=== PATIENT | female | born 1960 | race American Indian/Alaskan Native ===

== ENCOUNTER 2016-03-08 08:14 | Outpatient (CLI) | payer BC ==
--- NOTE | 2016-03-08 09:17 | Ultrasound Report ---
Renal ultrasound: The right kidney has a length of 10.8 cm. In the mid lower pole there is a 2.1 cm well-circumscribed echolucent mass. The right kidney echogenically is not otherwise remarkable. The renal length on the left side is 10.8 cm. The kidney is not quite as well visualized as the right however there are no echogenic abnormalities identified. Imaging of the urinary bladder is grossly normal. The patient demonstrated a right renal cyst of similar size and location on prior CT scan in 2011. Impression Right renal cyst.
== END 2016-03-08 08:15 | disposition home or self-care (01) ==
LOC: SPVWC 08:14
PROVIDERS: ATTEND Internal Medicine
DX: N28.1 Cyst of kidney, acquired (principal)
CPT/HCPCS: 76770

== ENCOUNTER 2021-10-06 12:28 | Emergency (ER) | payer SELFPAY ==
[2021-10-06] MEDS ORDERED: hydrALAZINE 20 MG/1 ML INJ IV ONE (13:18)
[2021-10-06 13:46] LABS: Basophils # (Auto) 0.1 K/mm3 (0.0-0.1); Basophils % (Auto) 1.4 % (0.0-1.8); Eosinophils # (Auto) 0.2 K/mm3 (0.0-0.4); Eosinophils % (Auto) 3.4 % (0.0-4.3); Hematocrit 35.5 % (30.3-42.9); Hemoglobin 11.8 gm/dl (10.1-14.3); Lymphocytes # (Auto) 1.3 K/mm3 (1.2-5.4); Lymphocytes % (Auto) 23.7 % (13.4-35.0); Mean Corpuscular HGB Conc 33 % (30-34); Mean Corpuscular Volume 91 fl (79-97); Monocytes # (Auto) 0.4 K/mm3 (0.0-0.8); Monocytes % (Auto) 6.4 % (0.0-7.3); Platelet Count 279 K/mm3 (140-440); Red Cell Distribution Width 14.6 % (13.2-15.2)
[2021-10-06] MEDS ORDERED: ACETAMINOPHEN 325 MG TAB PO ONE (14:00)
[2021-10-06 14:02] LABS: Alanine Aminotransferase 15 units/L (7-56); Albumin 4.6 g/dL (3.9-5); Blood Urea Nitrogen 13 mg/dL (7-17); Calcium 9.7 mg/dL (8.4-10.2); Hemolysis Index 28
[2021-10-06 14:03] LABS: BUN/Creatinine Ratio 19; Bilirubin,Direct < 0.2 mg/dL (0-0.2)
--- NOTE | 2021-10-06 14:15 | Emergency Department Report ---
ED Headache HPI - General Chief Complaint: High BP Stated Complaint: HYPERTENSION Time Seen by Provider: 10/06/21 13:17 - History of Present Illness Initial Comments: Patient is a 60-year-old female with history of hypertension presenting with complaint of elevated blood pressure and frontal pressure like headache beginning this morning at 10 AM while at work. States her headache has gradually intensified since onset. Allergies/Adverse Reactions: Allergies tetracaine Adverse Reaction (Verified 10/06/21 12:37) Unknown ED Review of Systems ROS: Stated complaint: HYPERTENSION Other details as noted in HPI Constitutional: denies: chills, fever Respiratory: denies: cough, shortness of breath, wheezing Cardiovascular: denies: chest pain, palpitations Gastrointestinal: denies: abdominal pain, nausea, diarrhea Musculoskeletal: denies: back pain, joint swelling, arthralgia Skin: denies: rash, lesions ED Past Medical Hx - Social History Smoking Status: Never Smoker ED Physical Exam - General Limitations: No Limitations - Head Head exam: Present: atraumatic, normocephalic - Respiratory Respiratory exam: Present: normal lung sounds bilaterally. Absent: respiratory distress - Cardiovascular Cardiovascular Exam: Present: normal rhythm, tachycardia, normal heart sounds - GI/Abdominal GI/Abdominal exam: Present: soft. Absent: distended, tenderness - Neurological Exam Neurological exam: Present: alert, oriented X3 - Psychiatric Psychiatric exam: Present: normal affect, normal mood - Skin Skin exam: Present: warm, dry, intact, normal color ED Course Vital Signs 10/06/21 10/06/21 10/06/21 12:35 13:45 13:52 Temperature 98 F 98.6 F Pulse Rate 111 H 103 H 117 H Respiratory 11 L Rate Blood Pressure 163/103 163/103 Blood Pressure 219/125 163/103 [Left] O2 Sat by Pulse 100 99 Oximetry 10/06/21 10/06/21 14:57 14:58 Temperature Pulse Rate 112 H 107 H Respiratory 14 12 Rate Blood Pressure Blood Pressure 132/77 132/77 [Left] O2 Sat by Pulse 99 100 Oximetry ED Medical Decision Making - Lab Data Result diagrams: 10/06/21 13:28 10/06/21 13:28 - EKG Data -: EKG Interpreted by Pa EKG shows normal: sinus rhythm Rate: normal - EKG Data 10/06/21 14:21 Bigeminy - Medical Decision Making Patient presenting with complaint of headache and elevated blood pressure. Blood pressure 219/125 on arrival. She was given 10 mg of IV hydralazine. Labs were performed and are essentially unremarkable. EKG from triage showed bigeminy. On monitor patient is not in bigeminy and is rather in sinus tach between 110 and 115 bpm. She was given 1 L saline bolus along with Tylenol for her headache. On reassessment her blood pressure is now 130s over 70s and she reports improvement of her pain. Differential diagnosis includes tension headache, hypertensive urgency. Patient is stable for discharge home. Critical care attestation.: If time is entered above; I have spent that time in minutes in the direct care of this critically ill patient, excluding procedure time. ED Disposition Clinical Impression: Hypertensive urgency, Headache Disposition: 01 HOME / SELF CARE / HOMELESS Is pt being admited?: No Condition: Stable Instructions: Hypertension, Adult, Managing Your Hypertension
[2021-10-06] MEDS ORDERED: SODIUM CHLORIDE 0.9% 1000 ML 1,000 ML IV ONE (14:16)
[2021-10-06 18:12] VITALS: BP 164/98
--- NOTE | 2021-10-08 09:43 | Electrocardiograph Report ---
[facility] Test Date: 2021-10-06 Test Time: 13:13:57 Pat Name: RUBINA RICHARDS Department: Room: Gender: F Electronic Test Technician: KOBY : 1960 Requested By: WILL EDWARDS Order Number: [id number] Reading MD: Carlito Vallejo Measurements Intervals [place] Rate: 93 P: 69 VT: 167 QRS: 33 QRSD: 87 T: 61 QT: 376 QTc: 467 Interpretive Statements Sinus rhythm Ventricular bigeminy No previous ECG available for comparison Electronically Signed On 10-08-2021 9:43:32 EDT by Carlito Vallejo
== END 2021-10-06 16:45 | disposition home or self-care (01) ==
LOC: ED 12:28
DX: I16.0 Hypertensive urgency (principal); R51.9 Headache, unspecified; Z88.8 Allergy status to other drugs, medicaments and biological substances
CPT/HCPCS: 36415; 80048; 80076; 83735; 84484; 85025; 93005; 96361; 96374; 99284; J0360; J7030